=== PATIENT | female | born 1935 | race Caucasian/White ===

== ENCOUNTER → 2018-01-03 12:23 | Outpatient (CLI) | payer MEDICARE, SELFPAY ==
--- NOTE | 2018-01-03 | DI.US.S_ITS ---
PROCEDURE: US VENOUS INSUFFICIENCY BILAT INDICATIONS: VENOUS INSUFFICIENCY TECHNIQUE: Real time scanning was performed of the lower extremity venous system, with imaging documentation, as well as Color and pulse Doppler interrogation. COMPARISON: None. FINDINGS: RIGHT LOWER EXTREMITY: The deep veins are normally compressible, and free of intraluminal thrombus. Color and pulse Doppler demonstrate normal intravascular flow. There is normal augmentation with distal compression maneuver. No reflux. Greater saphenous vein (GSV): Reflux present with duration of reflux extending beyond 0.5 seconds involving the greater saphenous vein at the mid calf level otherwise the greater saphenous vein demonstrates no insufficiency. Anterior accessory GSV (AAGSV): Reflux present with duration of reflux extending beyond 0.5 seconds. Small saphenous vein (SSV): No reflux. 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 LEFT LOWER EXTREMITY: The deep veins are normally compressible, and free of intraluminal thrombus. Color and pulse Doppler demonstrate normal intravascular flow. There is normal augmentation with distal compression maneuver. Mild reflux. Greater saphenous vein (GSV): Reflux present with duration of reflux extending beyond 0.5 seconds the involving the greater saphenous vein within the mid calf. No additional venous insufficiency seen within the greater saphenous vein. Anterior accessory GSV (AAGSV): Reflux present with duration of reflux extending beyond 0.5 seconds. Small saphenous vein (SSV): No reflux. Item Repair Manager veins: No perforators. IMPRESSION: 1. Reflux within the left deep system. 2. Reflux involving the greater saphenous vein at the calf level bilaterally. 3. Reflux within the anterior accessory saphenous veins bilaterally. 4. 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 Dictated by: Bruce Shaw [facility] Interpreted: Velvet Arellano MD on 01/03/2018 at 15:07 Approved by: Velvet Arellano MD, PhD on 01/03/2018 at 16:58
== END ==
PROVIDERS: Visit Provider Nurse Practitioner Family
DX: I87.2 Venous insufficiency (chronic) (peripheral) (principal)
CPT/HCPCS: 93970

== ENCOUNTER → 2018-10-10 13:42 | Outpatient (CLI) | payer MEDICARE, SELFPAY ==
--- NOTE | 2018-10-10 13:47 | DIET.PN ---
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 Consumes 4 carbs most meals no snacks switched to brown rice (is edible), multigrain bread Usual Intake: B 5:30am: 3/4c kamut cereal, 2/3c 2% milk, 1/2 banana or oatmeal c 1/2 banana L 11am: fried egg (olive oil, peanut oil, grapeseed oil) on 1/2 piece rye toast, 1c coffee c 2% milk, biscotti (1 carb cookie) Tasty Bites 5g fat/serving, vegetarian in a gravy adding some chicken thigh and veggies elevated pulse if moves around too much limits physical activity HT: 5'4 WT: 190# lost 15# in past year intentional (smaller portions) BMI: 32.6 (obese) Labs: August 30, 2018: A1c 6.4, Cholesterol 192, Trigycerides 140, LDL 111 Nutrition Diagnosis: Nutrition-related knowledge deficit r/t multiple chronic conditions c dietary restrictions that contradict each other aeb pt reporting one diet says to eat fish, one says not to, confusion over removing all sugar from diet, etc. Interventions: Discussed modifying current Carb Consistent (4 CHO) diet to promote healthy liver and reduce purine containing foods. For Gout: Limit beef/pork to once per week each, limit tuna to twice per week. Consume meat gravies, beef stock, anchovies and sardines only occasionally (once per month) and not in combination with each other. For NAFLD: Remove added sugars from diet, avoid Agave sweetener for fructose content. Limit fruit to 3 servings/d Increase vegetables from 1-2 servings to 3-4 servings per day. Start with 10 min seated aerobics 30 min after meals once cleared by biomedical field service engineer. Monitoring/Evaluations: Answer pt questions as indicated.
== END ==
PROVIDERS: Visit Provider Nurse Practitioner Family
DX: K76.0 Fatty (change of) liver, not elsewhere classified (principal); M10.9 Gout, unspecified
CPT/HCPCS: 97802